=== PATIENT | female | born 1990 | race Caucasian/White ===

== ENCOUNTER → 2016-12-15 09:07 | Day surgery (SDC) | payer OTHER ==
--- NOTE | 2016-12-15 08:19 | HP ---
HISTORY AND PHYSICAL: DATE OF CLINIC VISIT: 12/10/16 DATE OF ADMISSION: 12/15/16 [facility] HISTORY OF PRESENT ILLNESS: Ana is a generally healthy 26-year-old female with neuropathy. She has had left foot osteomyelitis, which currently involves the talus and distal portion of the calcaneus. Despite 40 visits to the hyperbaric tank and extensive wound care, she still has a draining sinus with foul odor and MRI evidence of osteomyelitis, chronic. Plan at this point is a revision of the amputation of her left hindfoot possibly Syme versus Pirogoff. PAST MEDICAL HISTORY: Her medical history is positive for chronic smoking, obesity, idiopathic neuropathy, chronic osteomyelitis, left foot and ankle. She is still smoking less than a half a pack a day. MEDICATIONS: Ana takes gabapentin by mouth for pain. She is currently on Bactrim. She uses an EpiPen p.r.n. and takes L-Lysine 135 mcg a day. ALLERGIES: She claims an allergy to LATEX, CECLOR, AUGMENTIN, ERYTHROMYCIN, and VANCOMYCIN. REVIEW OF SYSTEMS: Negative for fevers, chills, headache issues, significant chest pain, shortness of breath, abdominal distress, urination issues, thyroid issues. She is neuropathic and has been negative for her workup for diabetes. PHYSICAL EXAMINATION GENERAL: The patient is heavyset, pleasant, in no acute distress. HEENT: Oropharynx is clear. NECK: Supple. CHEST: Clear to auscultation. No wheezing or rales noted. CARDIAC: Shows a regular rate, distant heart sounds. No extra sounds noted. ABDOMEN: Large, doughy, distended, nontender. EXTREMITIES: Shows her to have a warm lower extremity, decreased sensation on the heel pad. She is in equinus of about 30 degrees fixed. She had a previous Achilles release. She has a 2 x 2 cm sinus in the center of the plantar aspect of the hindfoot with clear syrupy drainage somewhat foul smelling. IMAGING: Recent MRI shows osteomyelitis of talus and distal portion of calcaneus. PLAN: The plan for this nonhealing left heel wound is revision of the amputation. The patient is eager to proceed with the procedure given a lack of healing and regression in terms of odor and drainage. [id number]/[facility] #: [id number] [facility]
[~2016-12-15 09:07] MED LIST: Acetaminophen IV 1GM/100ML * 100 ML IVPB ONE; Acetaminophen IV 1GM/100ML * 100 ML ONE; Buffered Lidocaine 1% SYR 3ML* 3 ML/SYR SYRINGE INTRADERM ONE; Buffered Lidocaine 1% SYR 3ML* 3 ML/SYR SYRINGE ONE; Bupivacaine 0.5% SDV PF* 30 ML VIAL ONE; Clindamycin 900 MG IVPREMIX(* 900 MG/50 ML SDV IV ONE; Dexamethasone IV* 4 MG/ML 1 ML (4 MG) ONE; Famotidine IV* 10 MG/ML 2 ML (20 mg) IV ONE; Famotidine IV* 10 MG/ML 2 ML (20 mg) ONE; HYDROmorphone INJ* 1 MG/ML CARPUJECT SYRINGE IV PRN; HYDROmorphone INJ* 1 MG/ML CARPUJECT SYRINGE ONE; KETAMINE HCL* 50 MG/ML 10 ML VIAL ONE; Ketorolac INJ* 30 MG/ML 1 ML VIAL ONE; Lidocaine 2% PF * 5 ML VIAL ONE; Metoclopramide TAB* 10 MG ONE; Metoclopramide TAB* 10 MG PO ONE; Midazolam* 1 MG/ML 5 ML VIAL (5 MG) ONE; Ondansetron INJ* 2 MG/ML VIAL IV PRN; Ondansetron INJ* 2 MG/ML VIAL ONE; Propofol* 10 MG/ML 20 ML BTL IV PUSH ONE; fentaNYL* 50 MCG/ML 2 ML VIAL (100 MCG VIAL) IV PRN; fentaNYL* 50 MCG/ML 2 ML VIAL (100 MCG VIAL) ONE; oxyCODONE TAB* 5 MG TAB ONE; oxyCODONE TAB* 5 MG TAB PO PRN
[2016-12-15 11:35] LABS: Manual Entry Verification AS; UR Preg Internal Control QC Line Present; UR Preg Kit Lot# 6060104
[2016-12-15 15:04] VITALS: BP 126/73
--- NOTE | 2016-12-16 02:40 | OP ---
DATE OF OPERATION: 12/15/16 - [facility] DATE OF : 86 SURGEON: Juancarlos Mendieta MD. SHEET CATCHER: Verito Humphrey PA-C ANESTHESIOLOGIST: Nash Sims MD ANESTHESIA: General PRE-OP DIAGNOSIS: Recurrent osteomyelitis, left midtarsal joints. POST-OP DIAGNOSIS: Recurrent osteomyelitis, left midtarsal joints. OPERATIVE PROCEDURE: Left Pirogoff amputation. DESCRIPTION OF PROCEDURE: The patient was taken to the operating room where a transverse fishmouth incision was made capsulating the ulcer. The talus bone was dissected away from the heel and the distal 50% of the calcaneus was removed with a microsagittal saw. I also removed the articular surface from the distal tibia and shaped the medial and lateral malleoli. After 6 L of pulsatile lavage and cultures being sent, I brought the calcaneal fragment up to the distal plafond fixing this with paired 6.5-mm lag screws. X-ray intraoperatively showed satisfactory position and fixation. We then repaired the anterior distal flaps with 2-0 Vicryl sutures and 2-0 Surgipro for the skin. Tourniquet had been dropped prior to closure. The patient tolerated above well. [id number]/[facility] #: [id number] MTDD
--- NOTE | 2016-12-16 16:36 | RAD ---
CPT II Codes: 6045F INDICATION: Left Pirogoff Amputation TECHNIQUE: Intraoperative fluoroscopy was provided during intramedullary screw placement in the distal left tibia. FINDINGS: 2 spot films depict intramedullary screw placement oriented in the oblique longitudinal direction to the remaining distal left tibia. The patient is status post midfoot amputation. Fluoroscopy time: 3 seconds IMPRESSION: As above.
== END | disposition home or self-care (01) ==
LOC: OR 09:07
PROVIDERS: ATTEND Orthopaedic Surgery
DX: M86.672 Other chronic osteomyelitis, left ankle and foot (principal); F17.210 Nicotine dependence, cigarettes, uncomplicated; Q05.9 Spina bifida, unspecified; Z68.41 Body mass index [BMI] 40.0-44.9, adult; F32.9 Major depressive disorder, single episode, unspecified
CPT/HCPCS: 36415; 76000; 81025; 84702; 87070; 87073; 87077; 87184; 87186; 87205; 88304; 88311; A9270-GY; C1713; C1776; J1100; J1170; J1885; J2250; J2405; J2704; J3010

== ENCOUNTER 2018-03-22 11:50 | Observation (INO) | payer MEDICARE, MEDICAID ==
[~2018-03-22 11:50] MED LIST changes: -Acetaminophen IV 1GM/100ML * 100 ML IVPB ONE; -Acetaminophen IV 1GM/100ML * 100 ML ONE; +Buffered Lidocaine 0.9% SYRIN* 5 ML/SYR SYRINGE INTRADERM ONE; -Buffered Lidocaine 1% SYR 3ML* 3 ML/SYR SYRINGE INTRADERM ONE; -Buffered Lidocaine 1% SYR 3ML* 3 ML/SYR SYRINGE ONE; -Bupivacaine 0.5% SDV PF* 30 ML VIAL ONE; -Clindamycin 900 MG IVPREMIX(* 900 MG/50 ML SDV IV ONE; +Dexamethasone IV* 4 MG/ML 1 ML (4 MG) IV SLOW PU ONE; -Dexamethasone IV* 4 MG/ML 1 ML (4 MG) ONE; -Famotidine IV* 10 MG/ML 2 ML (20 mg) IV ONE; -Famotidine IV* 10 MG/ML 2 ML (20 mg) ONE; +Famotidine TAB* 20 MG PO ONE; -HYDROmorphone INJ* 1 MG/ML CARPUJECT SYRINGE IV PRN; -HYDROmorphone INJ* 1 MG/ML CARPUJECT SYRINGE ONE; -KETAMINE HCL* 50 MG/ML 10 ML VIAL ONE; -Ketorolac INJ* 30 MG/ML 1 ML VIAL ONE; -Lidocaine 2% PF * 5 ML VIAL ONE; -Metoclopramide TAB* 10 MG ONE; -Metoclopramide TAB* 10 MG PO ONE; -Midazolam* 1 MG/ML 5 ML VIAL (5 MG) ONE; -Ondansetron INJ* 2 MG/ML VIAL IV PRN; -Ondansetron INJ* 2 MG/ML VIAL ONE; -Propofol* 10 MG/ML 20 ML BTL IV PUSH ONE; -fentaNYL* 50 MCG/ML 2 ML VIAL (100 MCG VIAL) IV PRN; -fentaNYL* 50 MCG/ML 2 ML VIAL (100 MCG VIAL) ONE; -oxyCODONE TAB* 5 MG TAB ONE; -oxyCODONE TAB* 5 MG TAB PO PRN
[2018-03-22] MEDS ORDERED: Famotidine TAB* 20 MG ONE (12:01)
[2018-03-22] MEDS ORDERED: Clindamycin 900 MG IVPREMIX(* 900 MG/50 ML SDV IV ONE (12:01)
[2018-03-22] MEDS ORDERED: Dexamethasone IV* 4 MG/ML 1 ML (4 MG) ONE (12:01)
[2018-03-22] MEDS ORDERED: Buffered Lidocaine 0.9% SYRIN* 5 ML/SYR SYRINGE ONE (12:01)
[2018-03-22] MEDS ORDERED: fentaNYL* 50 MCG/ML 2 ML VIAL (100 MCG VIAL) ONE ×4 (13:05→15:57)
[2018-03-22] MEDS ORDERED: Midazolam* 1 MG/ML 2 ML VIAL (2 MG) ONE (13:05)
[2018-03-22] MEDS ORDERED: Bupivacaine 0.5% PF 10 ML VIAL INJ ONE (13:44)
[2018-03-22] MEDS ORDERED: KETAMINE HCL* 50 MG/ML 10 ML VIAL ONE (14:02)
[2018-03-22] MEDS ORDERED: HYDROmorphone INJ* 1 MG/ML CARPUJECT SYRINGE IV PRN (14:37)
[2018-03-22] MEDS ORDERED: Naloxone* 0.4 MG/ML 1 ML VIAL IV PRN (14:37)
[2018-03-22] MEDS ORDERED: DiMENhydriNATE IV* 50 MG/ML VIAL IV PUSH PRN (14:37)
[2018-03-22] MEDS ORDERED: Propofol* 10 MG/ML 20 ML BTL IV PUSH ONE (15:02)
[2018-03-22] MEDS ORDERED: Ketorolac INJ* 30 MG/ML 1 ML VIAL ONE (15:02)
[2018-03-22] MEDS ORDERED: Metoclopramide IV* 5 MG/ML 2 ML VIAL ONE (15:02)
[2018-03-22] MEDS ORDERED: diPHENhydraMINE IV* 50 MG/ML 1 ml VIAL (BENADRYL) IV PRN (15:23)
[2018-03-22] MEDS ORDERED: oxyCODONE TAB* 5 MG TAB PO PRN (15:23)
[2018-03-22] MEDS ORDERED: traZODone TAB* 50 MG TAB PO PRN (15:23)
[2018-03-22] MEDS ORDERED: Morphine VIAL* 4 MG/ML VIAL (1 ml vial) IV PRN (15:23)
[2018-03-22] MEDS ORDERED: Albuterol 2.5 MG/3 ML NEB.SOL* (0.083%) INH PRN (15:29)
[2018-03-22] MEDS: fentaNYL* 50 MCG/ML 2 ML VIAL (100 MCG VIAL) IV PRN ×3 (15:46→16:08)
[2018-03-22] MEDS: Docusate CAP* 100 MG PO SCH (19:31)
[2018-03-22] MEDS: Sulfamethox/Trimethoprim DS 800/160* TAB PO SCH (19:31)
[2018-03-22] MEDS: oxyCODONE/Acetamin 5/325 MG* TAB PO PRN (21:39)
[2018-03-22] MEDS: Clindamycin 600 MG IVPREMIX(* 600 MG/50 ML SDV IV SCH (21:39)
[2018-03-23 05:20] LABS: Hematocrit 35 % (35-47); Hemoglobin 11.6 g/dl (12.0-16.0)
[2018-03-23 05:35] LABS: EGFR Non-African American 142.6 (>60)
[2018-03-23] MEDS: Clindamycin 600 MG IVPREMIX(* 600 MG/50 ML SDV IV SCH ×2 (06:09→14:50)
--- NOTE | 2018-03-23 07:31 | OP ---
DATE OF OPERATION: 03/22/18 - ROOM #[id number] DATE OF : 86 SURGEON: Juancarlos Mendieta MD VITICULTURE TEACHER: Verito Humphrey PA-C. PRE-OP DIAGNOSIS: Recurrent osteomyelitis, left Pirogoff's amputation. POST-OP DIAGNOSIS: Recurrent osteomyelitis, left Pirogoff's amputation. OPERATIVE PROCEDURE: Left transtibial amputation. DESCRIPTION OF PROCEDURE: The patient was taken to the operating room where thigh tourniquet was inflated. A transverse elliptical incision was made with a longer posterior flap handbreadth below the tibial tubercle. We raised the periosteum proximally transecting the tibia at this level with a slight bevel anteriorly. Fibula was resected 1 cm proximally. This was after dividing through the anterior compartment with a 15 blade. We then flexed and retracted through the tibial and fibular osteotomy exposing the posterior flap, which was then transected with a 10 blade. Local hemostasis was obtained using #1 Vicryl suture ligatures. We dropped the tourniquet, irrigated thoroughly and cultures were sent. We then closed the plantar to dorsal flaps with sewing the fascia with #1 Vicryl interrupted sutures, 0-Vicryl for the deep subcu tissue, 2-0 Vicryl for superficial subcutaneous tissue and 2-0 Prolene interrupted sutures for the skin. Compression dressing applied. Plaster splint was then applied. [id number]/[facility] #: [id number] MTDD
[2018-03-23] MEDS: Sulfamethox/Trimethoprim DS 800/160* TAB PO SCH ×2 (09:28→21:55)
[2018-03-23] MEDS: Docusate CAP* 100 MG PO SCH ×2 (09:28→21:52)
[2018-03-23] MEDS: Citalopram TAB* 40 MG PO SCH (09:28)
[2018-03-23] MEDS: Enoxaparin(*) 40 MG/0.4 ML SYR SUBCUT SCH ×2 (09:29→10:56)
--- NOTE | 2018-03-23 10:01 | PN ---
Progress Note - Progress Note Date of Service: 03/23/18 SOAP: Subjective: []Patient seen at bedside. She feels well with no LLE pain. Denies CP, SOB, dizziness, nausea. Objective: [] Vital Signs Temp 97.4 F 03/23/18 07:17 Pulse 133 03/23/18 07:17 Resp 16 03/23/18 07:17 BP 100/48 03/23/18 07:17 Pulse Ox 94 03/23/18 07:17 Intake & Output 03/22/18 03/23/18 03/23/18 18:59 06:59 18:59 Intake Total 1150 69 Output Total 1400 500 Balance 1150 -1331 -500 Weight 285 lb 6.4 oz Intake: IV Fluids 1000 CLINDAMYCIN 900MG IV 50 LR 950 IVPB 69 ABX - CLINDAMYCIN 69 Oral 150 0 Output: Urine 1400 500 Laboratory Last Values Hgb 11.6 g/dl (12.0-16.0) L 03/23/18 04:53 Hct 35 % (35-47) 03/23/18 04:53 Sodium 137 mmol/L (139-145) L 03/23/18 04:53 Potassium 4.3 mmol/L (3.5-5.0) 03/23/18 04:53 Chloride 105 mmol/L (101-111) 03/23/18 04:53 Carbon Dioxide 27 mmol/L (22-32) 03/23/18 04:53 Anion Gap 5 mmol/L (2-11) 03/23/18 04:53 BUN 7 mg/dL (6-24) 03/23/18 04:53 Creatinine 0.51 mg/dL (0.51-0.95) 03/23/18 04:53 Est GFR ( Amer) 183.4 (>60) 03/23/18 04:53 Est GFR (Non-Af Amer) 142.6 (>60) 03/23/18 04:53 BUN/Creatinine Ratio 13.7 (8-20) 03/23/18 04:53 Glucose 152 mg/dL (70-100) H 03/23/18 04:53 Calcium 9.8 mg/dL (8.6-10.3) 03/23/18 04:53 General: Well appearing, NAD. Calm and cooperative. LLE: Splint CDI, no erythema proximally and thigh is soft. Assessment: [] POD 1 S/P left transtibial amputation Plan: []ambulate as tolerated with assist, NWB LLE PT/OT Lovenox DVT prophylaxis
[2018-03-23] MEDS: oxyCODONE/Acetamin 5/325 MG* TAB PO PRN ×3 (11:04→21:55)
[2018-03-24] MEDS: oxyCODONE/Acetamin 5/325 MG* TAB PO PRN (09:00)
[2018-03-24] MEDS: Citalopram TAB* 40 MG PO SCH (09:01)
[2018-03-24] MEDS: Sulfamethox/Trimethoprim DS 800/160* TAB PO SCH (09:01)
[2018-03-24] MEDS: Enoxaparin(*) 40 MG/0.4 ML SYR SUBCUT SCH (09:02)
[2018-03-24 09:08] VITALS: BP 100/55
[2018-03-24] MEDS: Docusate CAP* 100 MG PO SCH (09:08)
--- NOTE | 2018-03-24 12:45 | PN ---
Progress Note - Progress Note Date of Service: 03/24/18 SOAP: Subjective: []Patient seen at bedside. She feels well with no LLE pain. Denies fever, chills , CP, SOB, dizziness or nausea. Anxious to get home as her daughter is ill. Objective: [] Vital Signs Temp 98.7 F 03/24/18 09:11 Pulse 68 03/24/18 07:17 Resp 16 03/24/18 09:00 BP 100/55 03/24/18 07:17 Pulse Ox 99 03/24/18 08:00 Intake & Output 03/23/18 03/24/18 03/24/18 18:59 06:59 18:59 Intake Total 979 840 360 Output Total 1050 1300 0 Balance -71 -460 360 Intake: IV Fluids 259 LR 259 IVPB 120 ABX - CLINDAMYCIN 120 Oral 600 840 360 Output: Urine 1050 1300 0 Other: # Bowel Movements 0 # Voids 1 Laboratory Last Values Hgb 11.6 g/dl (12.0-16.0) L 03/23/18 04:53 Hct 35 % (35-47) 03/23/18 04:53 Sodium 137 mmol/L (139-145) L 03/23/18 04:53 Potassium 4.3 mmol/L (3.5-5.0) 03/23/18 04:53 Chloride 105 mmol/L (101-111) 03/23/18 04:53 Carbon Dioxide 27 mmol/L (22-32) 03/23/18 04:53 Anion Gap 5 mmol/L (2-11) 03/23/18 04:53 BUN 7 mg/dL (6-24) 03/23/18 04:53 Creatinine 0.51 mg/dL (0.51-0.95) 03/23/18 04:53 Est GFR ( Amer) 183.4 (>60) 03/23/18 04:53 Est GFR (Non-Af Amer) 142.6 (>60) 03/23/18 04:53 BUN/Creatinine Ratio 13.7 (8-20) 03/23/18 04:53 Glucose 152 mg/dL (70-100) H 03/23/18 04:53 Calcium 9.8 mg/dL (8.6-10.3) 03/23/18 04:53 General: Well appearing, NAD. Calm and cooperative. LLE: Splint CDI, no erythema proximally and thigh is soft. Assessment: [] POD 2 S/P left transtibial amputation Plan: []ambulate as tolerated with assist, NWB LLE PT/OT Lovenox DVT prophylaxis while in house. Patient does not feel comfortable with injections at home, she agrees to take 1 aspirin 325 mg tab daily Oxycodone for pain control at home. May use tylenol as needed up to 4000 mg per day. Patient agreeable. Bactrim DS 1 tab Q 12 x [address] Mendieta 04/01, call the office sooner with concerns
--- NOTE | 2018-03-24 13:55 | PN ---
PROGRESS NOTE: DATE OF SERVICE: 03/24/18 HISTORY: Ana is postop day #2 from a left transtibial amputation. She is sleeping soundly in the morning. I woke her to discuss her progress. She had some moderate pain yesterday, but is pleased with the pain control that she has had in the hospital. She is afebrile and in no distress, calm, and really doing quite well independently getting in and out of the bed to the wheelchair, a little bit of time with the walker. She says it feels strange not having her leg, obviously. She wishes to go home today. She will discuss her pain regimen with the PA, Ana Paula, on rounds today. I expect to see Ana back towards in next week or earlier. She can call the office if she is having any issues. [id number]/[facility] #: [id number] YANA
--- NOTE | 2018-03-25 07:02 | DS ---
DISCHARGE SUMMARY: DATE OF ADMISSION: 03/22/18 DATE OF DISCHARGE: 03/24/18 PROVIDER: Dr. Juancarlos Mendieta * (DICTATED BY CHARLEE ANDRADE) VARNISH MAKER: CHARLEE Bland. PREOPERATIVE DIAGNOSIS: Recurrent osteomyelitis, left Pirogoff's amputation. OPERATIVE PROCEDURE: Left transtibial amputation. HISTORY: The patient is a 27-year-old female with idiopathic neuropathy, obesity, history of smoking and recurrent ulceration of her left foot, osteomyelitis and a failed revision of the amputation making her a candidate for transtibial amputation with the hope of optimal wound healing and more prompt prosthetic fitting. HOSPITAL COURSE: The patient was admitted to [facility] on . On the same day, she underwent a left transtibial amputation without complication. She recovered briefly in the PACU and then was transferred to the short-stay surgical unit. Postop day 1, she is well appearing in no acute distress. Foot was clean, dry and intact, no erythema proximally and thigh is soft. Hemoglobin was 11.6, hematocrit was 35. Postop day 2, she is again well appearing in no acute distress. Temperature 98.7, pulse 68, respiratory rate 16 , blood pressure 100/55, pulse ox 99. She is well appearing, in no acute distress, calm, and cooperative. DISCHARGE MEDICATIONS: 1. Please resume Ventolin 2.5/3 mL neb solution, 2.5 mg inhaled q.6 hours p.r.n. 2. Bactrim double strength 800/160, take 1 tablet p.o. b.i.d. for a total duration of 10 days. 3. Lexapro 20 mg p.o. q.a.m. 4. Aspirin 325 mg p.o. daily for 30 days. 5. Docusate 100 mg p.o. b.i.d. 6. Oxycodone 5 mg tabs, take 1 to 2 tabs every 4 to 6 hours p.r.n., max daily dose of 8. DISCHARGE PLAN: Follow up with Dr. Mendieta on at 04/01/18, call for an appointment, call sooner with any concerns. Nonweightbearing on the left leg. Keep splint and dressing clean, dry and intact. Call orthopedic office for redness above the splint, drainage, fever or chills; go to the emergency room for chest pain or shortness of breath. Continue Bactrim double strength 1 tab every 12 hours. This plan was confirmed with Infectious Disease, Dr. Hawkins, who has seen this patient in the past, but not during this hospital stay. Pain control: Oxycodone 5 mg tabs, please take 1 to 2 tabs every 4 to 6 hours as needed for pain, max of 8 per day and for DVT prophylaxis take aspirin 325 mg once per day for 30 days. CHARLEE ANDRADE [id number]/[facility] #: [id number] [facility]
== END 2018-03-24 10:55 | disposition home or self-care (01) ==
LOC: OR 11:50 → SSU 16:52 → INTOOBSV 16:52
PROVIDERS: ADMIT Orthopaedic Surgery; ATTEND Orthopaedic Surgery
PROC: 0Y6J0Z1 Detachment at Left Lower Leg, High, Open Approach (ICD-10-PCS; principal; 2018-03-22 13:00)
DX: M86.672 Other chronic osteomyelitis, left ankle and foot (principal); Z88.8 Allergy status to other drugs, medicaments and biological substances; E66.9 Obesity, unspecified; G60.9 Hereditary and idiopathic neuropathy, unspecified; Z88.1 Allergy status to other antibiotic agents; Z79.899 Other long term (current) drug therapy; F17.210 Nicotine dependence, cigarettes, uncomplicated
CPT/HCPCS: 36415; 80048; 85014; 85018; 87070; 87073; 87205; 88307; 88311; 96372; 96374; A9270-GY; G0378; G8978-GP-CI; G8979-GP-CH; G8987-GO-CI; G8988-GO-CI; G8989-GO-CI; J1100; J1650; J1885; J2250; J2704; J2765; J3010

== ENCOUNTER 2021-08-06 07:09 | Inpatient (IN) ==
[~2021-08-06 07:09] MED LIST changes: -Buffered Lidocaine 0.9% SYRIN* 5 ML/SYR SYRINGE INTRADERM ONE; +Buffered Lidocaine 1% SYRIN 1 ml INTRADERM ONE; +Dexamethasone IV 4 MG/ML VIAL 1 ml VIAL ONE; -Dexamethasone IV* 4 MG/ML 1 ML (4 MG) IV SLOW PU ONE; -Famotidine TAB* 20 MG PO ONE; +Lactated Ringers 1000 ml BAG 1,000 ML IV SCH; +Lidocaine 2% PF 5 ML VIAL ONE; +Midazolam 2 mg/2 ml VIAL 1 mg/ml 2 ml VIAL (2 mg) ONE; +Ondansetron 4 mg VIAL 2 MG/ML 2 ml VIAL ONE; +Propofol 10 MG/ML 20 ML BTL ONE; +Rocuronium 50 mg VIAL 10 mg/ml 5 ml VIAL (50 mg) ONE; +fentaNYL 100 mcg/2 ml 50 MCG/ML VIAL ONE
[2021-08-06] MEDS ORDERED: Heparin 5000 UNITS/ML 1 mL VIAL ONE (07:26)
[2021-08-06] MEDS ORDERED: ceFAZolin 1 GM ADVAN 1 GM ADDV.VIAL IVPB ONE (07:26)
[2021-08-06] MEDS ORDERED: ceFAZolin 2 GM in NS PREMIX 2 GM/100 ML BAG IVPB ONE (07:26)
[2021-08-06] MEDS ORDERED: Heparin 5000 UNITS/ML 1 mL VIAL SUBCUT ONE (07:35)
[2021-08-06] MEDS ORDERED: Albuterol 2.5mg/3 ml (0.083%) NEB.SOLN INH ONE (08:27)
[2021-08-06] MEDS ORDERED: Acetaminophen IV 1 GM/100ML 100 ML IV PRN (09:22)
[2021-08-06] MEDS ORDERED: HYDROmorphone 1 MG/1 ML SYRINGE IV PRN (09:22)
[2021-08-06] MEDS ORDERED: DiMENhydriNATE IV 50 mg/ml 1 ml VIAL IV PUSH PRN (09:22)
[2021-08-06] MEDS ORDERED: Ondansetron 4 mg VIAL 2 MG/ML 2 ml VIAL IV PRN ×2 (09:22→11:54)
[2021-08-06] MEDS ORDERED: Naloxone 0.4 mg VIAL 0.4 mg/ml 1 ml VIAL IV PRN (09:22)
[2021-08-06] MEDS ORDERED: fentaNYL 100 mcg/2 ml 50 MCG/ML VIAL ONE ×3 (09:44→12:06)
[2021-08-06] MEDS ORDERED: Phenylephrine IV 10 MG/ML 1 ml VIAL ONE (09:55)
[2021-08-06] MEDS ORDERED: Glycopyrrolate IV 0.2 MG/ML 1 ML VIAL ONE (09:55)
[2021-08-06] MEDS ORDERED: Rocuronium 50 mg VIAL 10 mg/ml 5 ml VIAL (50 mg) ONE (10:21)
[2021-08-06] MEDS ORDERED: Acetaminophen IV 1 GM/100ML 100 ML IV ONE (11:27)
[2021-08-06] MEDS ORDERED: HYDROmorphone 1 MG/1 ML SYRINGE IV SLOW PU PRN (11:54)
[2021-08-06] MEDS ORDERED: diPHENhydraMINE IV 50 MG/ML 1 ml VIAL (BENADRYL) SLOW PUSH PRN (11:54)
[2021-08-06] MEDS ORDERED: HYDROmorphone 0.5 MG/0.5 ML SYRINGE IV SLOW PU PRN (11:54)
[2021-08-06] MEDS ORDERED: Ondansetron 4 mg VIAL 2 MG/ML 2 ml VIAL ONE ×3 (11:56→13:12)
[2021-08-06] MEDS ORDERED: DiMENhydriNATE IV 50 mg/ml 1 ml VIAL ONE (12:02)
[2021-08-06] MEDS: fentaNYL 100 mcg/2 ml 50 MCG/ML VIAL IV PRN ×4 (12:05→12:25)
[2021-08-06] MEDS ORDERED: diPHENhydraMINE IV 50 MG/ML 1 ml VIAL (BENADRYL) ONE (12:48)
[2021-08-06] MEDS ORDERED: diPHENhydraMINE IV 50 MG/ML 1 ml VIAL (BENADRYL) IV PRN (13:14)
[2021-08-06] MEDS ORDERED: Ondansetron 4 mg VIAL 2 MG/ML 2 ml VIAL IV ONE (13:14)
[2021-08-06] MEDS ORDERED: Prochlorperazine 5 mg/ml 2 ml VIAL (10 mg) IV ONE (13:15)
[2021-08-06] MEDS ORDERED: Prochlorperazine 5 mg/ml 2 ml VIAL (10 mg) ONE (13:23)
[2021-08-06] MEDS: Lactated Ringers 1000 ml BAG 1,000 ML IV SCH ×2 (13:30→22:18)
[2021-08-06] MEDS: Heparin 5000 UNITS/ML 1 mL VIAL SUBCUT SCH ×2 (16:38→22:04)
[2021-08-06] MEDS: Famotidine IV 10 MG/ML 2 ml VIAL (20 mg) IV SLOW PU SCH (22:04)
[2021-08-07] MEDS: Lactated Ringers 1000 ml BAG 1,000 ML IV SCH (06:55)
[2021-08-07] MEDS: Heparin 5000 UNITS/ML 1 mL VIAL SUBCUT SCH ×2 (09:45→15:47)
[2021-08-07] MEDS: Famotidine IV 10 MG/ML 2 ml VIAL (20 mg) IV SLOW PU SCH (09:45)
[2021-08-07] MEDS ORDERED: D5W 1/2 NS KCl 20 meq 1000 ml 1,000 ML IV SCH (12:00)
[2021-08-07 12:22] VITALS: BP 111/73
[2021-08-07] MEDS ORDERED: HYDROcodone/ACET. 7.5/325 LIQ 15 ML UDC PO PRN (14:06)
[2021-08-09] MEDS ORDERED: Scopolamine PATCH Remove NOTE PATCH OFF SCH (08:00)
== END 2021-08-07 17:45 | disposition home or self-care (01) | DRG 621 ==
LOC: AA 07:09 → SSU 14:09
PROVIDERS: ADMIT Surgery; ATTEND Surgery